=== PATIENT | male | born 1985 | race Caucasian/White ===

== ENCOUNTER 2016-12-13 19:10 | Emergency (ER) | payer BC ==
[~2016-12-13] VITALS: Ht 182.9 cm; Wt 79.4 kg
[2016-12-13] MEDS ORDERED: FAMO-132 PO (19:18)
--- NOTE | 2016-12-13 19:24 | NUR ---
Pt ambulated to room with steady gait. Pt c/o mid epigastric pain radiating to his back since this afternoon. Pt sts he has hx of pancreatitis and is concerned this might be similiar. Pt c/o nausea but denies vomiting. Pt resting in position of comfort for self. Family at bedside. Awaiting further eval.
[2016-12-13] MEDS ORDERED: IV NORMAL SALINE 1000 ML BAG IV ONE (19:45)
[2016-12-13] MEDS ORDERED: MORPHINE SULFATE 2 MG/1 ML DISP.SYRIN IV ONE (19:45)
[2016-12-13] MEDS ORDERED: ONDANSETRON 4 MG/2 ML VIAL IV ONE (19:45)
[2016-12-13 19:54] LABS: *BILIRUBIN,URIN NEGATIVE (NEGATIVE); *BLOOD, URINE NEGATIVE (NEGATIVE); *CLARITY,URINE CLEAR (CLEAR); *COLOR,URINE YELLOW (YELLOW); *KETONES,URINE NEGATIVE (NEGATIVE); *PROTEIN,URINE NEGATIVE (NEGATIVE); *UROBILINOGEN,URINE 0.2 E.U./dl (NORMAL); LEUKOCYTE ESTERASE ,URINE NEGATIVE (NEGATIVE); NITRITE, URINE NEGATIVE (NEGATIVE); UGLUCOSE NEGATIVE (NEGATIVE)
[2016-12-13] MEDS ORDERED: ONDANSETRON 4 MG/2 ML VIAL ONE (19:54)
[2016-12-13] MEDS ORDERED: MORPHINE SULFATE 4 MG/1 ML DISP.SYRIN ONE (19:54)
[2016-12-13 19:57] LABS: WBC,URINE NONE SEEN /HPF (0-3)
--- NOTE | 2016-12-13 20:02 | NUR ---
Pt seen by Dr. Perera. EKG obtained and given to MD. IV established, labs drawn and sent. Pt medicated for discomfort and nausea, will monitor for effects of medication. Fluid bolus infusing freely to gravity. Pt resting in position of comfort for self.
[2016-12-13 20:08] LABS: BASOPHILS # (AUTO) 0.1 K/uL (0.0-8.0); BASOPHILS % (AUTO) 1.1 % (0.0-2.0); EOSINOPHILS # (AUTO) 0.4 K/uL (0.0-0.7); EOSINOPHILS % (AUTO) 6.4 % (0.0-7.0); HEMOGLOBIN 13.3 G/DL (14.0-18.0); LYMPHOCYTES # (AUTO) 2.2 K/UL (0.8-4.8); LYMPHOCYTES % (AUTO) 33.7 % (20.5-51.5); MEAN CORPUSCULAR HEMOGLOBIN 30.4 UUG (27.0-31.0); MEAN CORPUSCULAR HGB CONC 34 g/dL (32.0-37.0); MEAN CORPUSCULAR VOLUME 89.3 FL (82.0-92.0); MONOCYTES # (AUTO) 0.4 K/UL (0.1-1.30); MONOCYTES % (AUTO) 6.1 % (0.0-11.0); NEUTROPHILS # (AUTO) 3.3 K/UL (1.8-8.9); NEUTROPHILS % (AUTO) 52.7 % (38.5-71.5); PLATELET COUNT (AUTO) 225 K/UL (150-450); RED BLOOD CELL COUNT(AUTO) 4.37 MIL/UL (4.7-6.1); WHITE BLOOD COUNT (AUTO) 6.4 K/UL (4.0-11.2)
--- NOTE | 2016-12-13 20:34 | NUR ---
Pt sts pain improved with previous medication. U/S and xray at bedside.
[2016-12-13 20:38] LABS: BILIRUBIN,DIRECT 0.1 mg/dL (0.0-0.2); BILIRUBIN,TOTAL 0.5 mg/dL (0.2-1.0)
[2016-12-13] MEDS ORDERED: MAG HYDROX/AL HYDROX/SIMETH 30 ML LIQUID UDC PO ONE (20:45)
[2016-12-13] MEDS ORDERED: LIDOCAINE VISCUS 2% 15 ML UDC MM ONE (20:45)
--- NOTE | 2016-12-13 20:54 | NUR ---
U/S completed, pt c/o pain increasing. MD aware and pt medicated for discomfort. Will monitor for effects of medication.
[2016-12-13] MEDS ORDERED: MAG HYDROX/AL HYDROX/SIMETH 30 ML LIQUID UDC ONE (20:57)
[2016-12-13] MEDS ORDERED: LIDOCAINE VISCUS 2% 15 ML UDC ONE (20:58)
--- NOTE | 2016-12-13 21:10 | NUR ---
Pain improved with medication. Pt stable for discharge per MD. IV dc'd, catheter intact. Drsg applied. No problems noted to site. Pt given ACI. Pt verbalized understanding of dc instructions. 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
== END 2016-12-13 21:10 | disposition home or self-care (01) ==
LOC: ER 19:11
DX: K29.70 Gastritis, unspecified, without bleeding (principal); K21.9 Gastro-esophageal reflux disease without esophagitis; F17.200 Nicotine dependence, unspecified, uncomplicated; F10.10 Alcohol abuse, uncomplicated
CPT/HCPCS: 36415; 71010; 76705; 80048; 80076; 81001; 83690; 85025; 93005; 96361; 96374; 96375; 99285; A4663; J2270; J2405; J7030